=== PATIENT | male | born 1980 | race Two or more races ===

== ENCOUNTER 2021-08-28 12:19 | Inpatient (IN) | payer OTHER ==
[~2021-08-28] VITALS: Ht 175.3 cm; Wt 92.2 kg
[2021-08-28] MEDS ORDERED: SODIUM CHLORIDE 0.9% 1,000 ML IVB ONE (12:45)
[2021-08-28] MEDS ORDERED: ACETAMINOPHEN/CODEINE#3 (300/30mg) TAB PO ONE (12:45)
[2021-08-28 14:52] LABS: Urine Bacteria NONE SEEN /hpf (None Seen); Urine Blood 2+ /uL (Negative); Urine Mucus FEW (None Seen); Urine Specific Gravity 1.012 (1.001-1.035); Urine WBC 106 /hpf (0 - 3)
[2021-08-28] MEDS ORDERED: ONDANSETRON HCL 4 MG/2 ML VIAL IV PRN (15:15)
[2021-08-28] MEDS ORDERED: OXYBUTYNIN CHL 5 MG TAB PO PRN (15:15)
[2021-08-28] MEDS: amLODIPine BESYLATE 5 MG TAB PO SCH ×2 (15:42→18:58)
[2021-08-28] MEDS: ENOXAPARIN SOD 40 MG/0.4 ML SYRINGE SC SCH ×2 (15:45→18:59)
[2021-08-28 17:47] LABS: Basophils # (auto) 0 10 ^3/uL (0-0.2); Basophils % (auto) 0.5 % (0.0-2.0); Eosinophils # (auto) 0.1 10 ^3/uL (0-0.8); Eosinophils % (auto) 1.3 % (0.0-7.0); Hematocrit 39.3 % (41.0-53.0); Hemoglobin 13.6 g/dL (13.5-17.5); Lymphocytes # (auto) 1.3 10 ^3/uL (0.4-5.4); Lymphocytes % (auto) 24.8 % (10.0-50.0); Mean Corpuscular Hemoglobin 30.2 pg (28.0-32.0); Mean Corpuscular Hgb Conc. 34.6 g/dL (32.0-36.0); Mean Corpuscular Volume 87.4 fL (80.0-100.0); Monocytes # (auto) 0.3 10 ^3/uL (0-1.3); Monocytes % (auto) 6.1 % (0.0-12.0); Neutrophils # (auto) 3.6 10 ^3/uL (1.6-8.6); Neutrophils % (auto) 67.3 % (37.0-80.0); Nucleated Red Blood Cells % 0.1 %; Red Cell Distribution Width 12.5 % (11.8-14.3); White Blood Cell 5.4 10^3/uL (4.4-10.8)
[2021-08-28] MEDS ORDERED: MORPHINE SULFATE INJECTION 2 MG/ML SYRG IV ONE (18:00)
[2021-08-28 18:04] LABS: Albumin 3.8 g/dL (3.4-5.0); Calcium 8.3 mg/dL (8.5-10.1); Potassium 4.2 mmol/L (3.5-5.1)
[2021-08-28 18:07] LABS: INR 1.04 (0.9-1.15); Partial Thromboplastin Time 25.4 sec (23.6-33.0)
[2021-08-28 18:08] LABS: BUN/Creatinine Ratio 13.9; Bilirubin, Total 0.3 mg/dL (0.2-1.0); Total Protein 7.8 g/dL (6.4-8.2)
[2021-08-28 19:05] VITALS: BP 132/73
[2021-08-28] MEDS ORDERED: AMLO-489 PO (19:09)
[2021-08-28] MEDS ORDERED: KETOROLAC TROMETH 30 MG/ML 1ML VIAL IV PRN (19:15)
[2021-08-28] MEDS ORDERED: MIRT-66 PO (19:21)
[2021-08-28] MEDS ORDERED: PRA1C PO (19:21)
[2021-08-28] MEDS ORDERED: LISI20TA28 PO (19:21)
[2021-08-28] MEDS ORDERED: GABA-339 PO (19:21)
[2021-08-28] MEDS ORDERED: FURO40TA4 PO (19:21)
[2021-08-28] MEDS ORDERED: LACT10SO3 PO (19:21)
[2021-08-28] MEDS ORDERED: ACET-1156 PO (19:21)
[2021-08-28] MEDS ORDERED: KETO2CRE4 EX (19:21)
[2021-08-28] MEDS ORDERED: OXYB5TAB24 PO (19:21)
[2021-08-28] MEDS ORDERED: TAMS0.4C36 PO (19:21)
[2021-08-28 20:00] VITALS: BP 126/75
[2021-08-28] MEDS: PHENAZOPYRIDINE HCL 100 MG TAB PO SCH (20:47)
[2021-08-28] MEDS: PIPERACILLIN-TAZOB 3.375GM 100 ML IV SCH (21:45)
[2021-08-28] MEDS: GABAPENTIN 300 MG CAP PO SCH (21:46)
[2021-08-28] MEDS: PRAZOSIN HCL 1 MG CAP PO SCH (21:46)
[2021-08-28] MEDS: HYDROmorphone HCL 2 MG/ML VL IV PRN (21:58)
[2021-08-28 22:24] VITALS: BP 126/75
[2021-08-28 23:38] LABS: Urine Bacteria FEW /hpf (None Seen); Urine Blood TRACE /uL (Negative); Urine Budding Yeast OCCASIONAL /hpf (None Seen); Urine Specific Gravity 1.009 (1.001-1.035); Urine WBC 32 /hpf (0 - 3)
[2021-08-29] MEDS: HYDROmorphone HCL 2 MG/ML VL IV PRN ×6 (02:49→22:56)
[2021-08-29 05:01] VITALS: BP 112/65
[2021-08-29] MEDS: PIPERACILLIN-TAZOB 3.375GM 100 ML IV SCH ×3 (06:00→22:28)
[2021-08-29] MEDS: PHENAZOPYRIDINE HCL 100 MG TAB PO SCH ×3 (08:00→18:00)
[2021-08-29 09:00] VITALS: BP 102/71
[2021-08-29] MEDS: ENOXAPARIN SOD 40 MG/0.4 ML SYRINGE SC SCH (10:00)
[2021-08-29] MEDS: LISINOPRIL 20 MG TAB PO SCH (10:00)
[2021-08-29] MEDS: GABAPENTIN 300 MG CAP PO SCH ×2 (10:00→22:29)
[2021-08-29] MEDS: amLODIPine BESYLATE 5 MG TAB PO SCH (10:00)
[2021-08-29 12:44] VITALS: BP 115/75
[2021-08-29] MEDS: HYDROcodone-ACET 10/325MG TAB PO PRN ×2 (15:45→21:14)
[2021-08-29 16:44] VITALS: BP 121/83
[2021-08-29] MEDS: TAMSULOSIN HYDROCHLORIDE 0.4 MG CAP PO SCH (18:00)
[2021-08-29 22:00] VITALS: BP 114/74
[2021-08-29] MEDS: PRAZOSIN HCL 1 MG CAP PO SCH ×2 (22:00→22:28)
[2021-08-30 05:00] VITALS: BP 109/61
[2021-08-30] MEDS: PIPERACILLIN-TAZOB 3.375GM 100 ML IV SCH ×3 (05:18→21:29)
[2021-08-30] MEDS: GABAPENTIN 300 MG CAP PO SCH ×3 (05:19→21:30)
[2021-08-30] MEDS: PHENAZOPYRIDINE HCL 100 MG TAB PO SCH (07:59)
[2021-08-30] MEDS: HYDROmorphone HCL 2 MG/ML VL IV PRN ×4 (07:59→21:40)
[2021-08-30 08:59] VITALS: BP 150/86
[2021-08-30 09:44] LABS: Albumin 3.4 g/dL (3.4-5.0); Calcium 8.1 mg/dL (8.5-10.1); Potassium 4.3 mmol/L (3.5-5.1)
[2021-08-30 09:48] LABS: BUN/Creatinine Ratio 12.2; Bilirubin, Total 0.3 mg/dL (0.2-1.0); Total Protein 7.1 g/dL (6.4-8.2)
[2021-08-30] MEDS: LISINOPRIL 20 MG TAB PO SCH (10:00)
[2021-08-30] MEDS: ENOXAPARIN SOD 40 MG/0.4 ML SYRINGE SC SCH (10:00)
[2021-08-30] MEDS: amLODIPine BESYLATE 5 MG TAB PO SCH (11:45)
[2021-08-30 13:00] VITALS: BP 137/80
[2021-08-30] MEDS ORDERED: FUROSEMIDE 40 MG/4 ML VIAL ONE (13:02)
[2021-08-30] MEDS ORDERED: GADOTERATE MEG 10 MMOL/20ml INJ (0.5MMOL/ml) IV ONE (13:14)
[2021-08-30 16:53] VITALS: BP 129/81
[2021-08-30] MEDS: TAMSULOSIN HYDROCHLORIDE 0.4 MG CAP PO SCH (18:00)
[2021-08-30] MEDS: MIRTAZAPINE 30 MG TAB PO SCH (21:30)
[2021-08-30] MEDS: PRAZOSIN HCL 1 MG CAP PO SCH (21:45)
[2021-08-30 22:00] VITALS: BP 104/74
[2021-08-31 05:16] VITALS: BP 95/60
[2021-08-31] MEDS: PIPERACILLIN-TAZOB 3.375GM 100 ML IV SCH ×3 (05:32→21:30)
[2021-08-31] MEDS: HYDROmorphone HCL 2 MG/ML VL IV PRN ×2 (06:23→12:15)
[2021-08-31] MEDS: HYDROcodone-ACET 10/325MG TAB PO PRN ×3 (07:45→21:29)
[2021-08-31 09:06] VITALS: BP 101/69
[2021-08-31] MEDS: ENOXAPARIN SOD 40 MG/0.4 ML SYRINGE SC SCH (10:00)
[2021-08-31] MEDS: GABAPENTIN 300 MG CAP PO SCH ×2 (10:00→21:31)
[2021-08-31] MEDS: amLODIPine BESYLATE 5 MG TAB PO SCH (10:00)
[2021-08-31] MEDS: LISINOPRIL 20 MG TAB PO SCH (10:00)
[2021-08-31 14:14] VITALS: BP 127/75
[2021-08-31 16:40] VITALS: BP 108/60
[2021-08-31] MEDS: TAMSULOSIN HYDROCHLORIDE 0.4 MG CAP PO SCH (18:00)
[2021-08-31] MEDS: MIRTAZAPINE 30 MG TAB PO SCH (21:26)
[2021-08-31 22:00] VITALS: BP 117/74
[2021-09-01 05:00] VITALS: BP 114/63
[2021-09-01] MEDS: HYDROcodone-ACET 10/325MG TAB PO PRN ×3 (05:45→16:43)
[2021-09-01] MEDS: PIPERACILLIN-TAZOB 3.375GM 100 ML IV SCH ×2 (06:00→14:00)
[2021-09-01 09:00] VITALS: BP 118/74
[2021-09-01] MEDS: amLODIPine BESYLATE 5 MG TAB PO SCH (10:00)
[2021-09-01] MEDS: GABAPENTIN 300 MG CAP PO SCH (10:00)
[2021-09-01] MEDS: ENOXAPARIN SOD 40 MG/0.4 ML SYRINGE SC SCH (10:00)
[2021-09-01] MEDS: LISINOPRIL 20 MG TAB PO SCH (10:00)
[2021-09-01 13:00] VITALS: BP 117/71
[2021-09-01] MEDS ORDERED: CIPR500T4 PO ×2 (13:31→13:42)
== END 2021-09-01 16:21 | DRG 699 ==
LOC: ER 12:19 → EEVIPCON 12:19 → TELE 15:01 → WEST WING 18:15
PROVIDERS: ADMIT Internal Medicine; ATTEND Internal Medicine
PROC: 05HF33Z Insertion of Infusion Device into Left Cephalic Vein, Percutaneous Approach (ICD-10-PCS; principal; 2021-08-28)
PROC: B54NZZA Ultrasonography of Left Upper Extremity Veins, Guidance (ICD-10-PCS; 2021-08-28)
DX: T83.192A Other mechanical complication of indwelling ureteral stent, initial encounter (principal); N13.6 Pyonephrosis; B96.5 Pseudomonas (aeruginosa) (mallei) (pseudomallei) as the cause of diseases classified elsewhere; N28.89 Other specified disorders of kidney and ureter; N26.1 Atrophy of kidney (terminal); Z53.9 Procedure and treatment not carried out, unspecified reason; R53.81 Other malaise; Y83.8 Other surgical procedures as the cause of abnormal reaction of the patient, or of later complication, without mention of misadventure at the time of the procedure; Z20.822 Contact with and (suspected) exposure to COVID-19; Z87.440 Personal history of urinary (tract) infections; Z82.49 Family history of ischemic heart disease and other diseases of the circulatory system; Y92.89 Other specified places as the place of occurrence of the external cause; N18.31 Chronic kidney disease, stage 3a
CPT/HCPCS: 36415; 74176; 74183; 76775; 78707; 80053; 81001; 83605; 83690; 85025; 85610; 85730; 87040; 87086; 87088; 87186; 96361; 96374; G0378; J2543

== ENCOUNTER 2021-12-24 11:54 | Emergency (ER) | payer OTHER ==
[~2021-12-24 11:54] MED LIST: ACET-1156 PO; AMLO-489 PO; CIPR500T4 PO; FURO40TA4 PO; GABA-339 PO; KETO2CRE4 EX; LACT10SO3 PO; LISI20TA28 PO; MIRT-66 PO; OXYB5TAB24 PO; PRA1C PO; TAMS0.4C36 PO
== END 2021-12-24 14:26 | disposition left against medical advice (07) ==
LOC: ER 11:54 → EEVIPCON 11:54 → ER 14:26
DX: R10.9 Unspecified abdominal pain (principal); I10 Essential (primary) hypertension; Z87.442 Personal history of urinary calculi

== ENCOUNTER 2022-01-03 18:29 | Inpatient (IN) | payer OTHER ==
[~2022-01-03] VITALS: Ht 175.3 cm; Wt 86.1 kg
[2022-01-04 01:05] LABS: Basophils # (auto) 0 10 ^3/uL (0-0.2); Basophils % (auto) 0.6 % (0.0-2.0); Eosinophils # (auto) 0.3 10 ^3/uL (0-0.8); Eosinophils % (auto) 5.3 % (0.0-7.0); Hematocrit 35.4 % (41.0-53.0); Lymphocytes # (auto) 1.4 10 ^3/uL (0.4-5.4); Lymphocytes % (auto) 27.3 % (10.0-50.0); Mean Corpuscular Hemoglobin 28.8 pg (28.0-32.0); Mean Corpuscular Hgb Conc. 33.9 g/dL (32.0-36.0); Mean Corpuscular Volume 84.9 fL (80.0-100.0); Monocytes # (auto) 0.5 10 ^3/uL (0-1.3); Monocytes % (auto) 9.9 % (0.0-12.0); Neutrophils # (auto) 2.9 10 ^3/uL (1.6-8.6); Neutrophils % (auto) 56.9 % (37.0-80.0); Nucleated Red Blood Cells % 0.1 %; Red Blood Cells 4.17 10^6/uL (4.5-5.90); Red Cell Distribution Width 13.9 % (11.8-14.3); White Blood Cell 5.1 10^3/uL (4.4-10.8)
[2022-01-04 01:25] LABS: Albumin 3.5 g/dL (3.4-5.0); Calcium 8.4 mg/dL (8.5-10.1)
[2022-01-04 01:28] LABS: Bilirubin, Total 0.2 mg/dL (0.2-1.0); Total Protein 7.2 g/dL (6.4-8.2)
[2022-01-04 01:41] LABS: Urine Bacteria NONE SEEN /hpf (None Seen); Urine Blood 3+ /uL (Negative); Urine Mucus FEW (None Seen); Urine Specific Gravity 1.023 (1.001-1.035); Urine WBC 505 /hpf (0 - 3)
[2022-01-04 01:43] LABS: CRP High Sensitivity 1.21 mg/dL (< 0.3)
[2022-01-04] MEDS ORDERED: SODIUM CHLORIDE 0.9% 1,000 ML IV ONE (03:30)
[2022-01-04] MEDS ORDERED: cefTRIAXone 1GM/50ML D5W 50 ML IV ONE (03:30)
[2022-01-04] MEDS ORDERED: PIPERACILLIN-TAZOB 3.375GM 100 ML IV ONE (06:00)
[2022-01-04] MEDS ORDERED: D5W/SOD CHL 0.45% 1,000 ML IV ONE (06:00)
[2022-01-04] MEDS ORDERED: ONDANSETRON HCL 4 MG/2 ML VIAL IV PRN (06:00)
[2022-01-04] MEDS: HYDROcodone-ACET 10/325MG TAB PO PRN ×4 (08:00→23:00)
[2022-01-04] MEDS ORDERED: amLODIPine BESYLATE 5 MG TAB PO ONE (10:00)
[2022-01-04] MEDS ORDERED: LISINOPRIL 10 MG TAB PO ONE (10:00)
[2022-01-04 13:30] VITALS: BP 133/82
[2022-01-04] MEDS ORDERED: GABAPENTIN 300 MG CAP PO SCH ×2 (14:42→22:00)
[2022-01-04] MEDS ORDERED: VANCOMYCIN PER PHARMACY 0 MG IV SCH (16:00)
[2022-01-04] MEDS: VANCOMYCIN 1GM/250ML 250 ML IV SCH (17:59)
[2022-01-04] MEDS: TAMSULOSIN HYDROCHLORIDE 0.4 MG CAP PO SCH (18:00)
[2022-01-04 22:00] VITALS: BP 107/67
[2022-01-04] MEDS: MIRTAZAPINE 30 MG TAB PO SCH (22:32)
[2022-01-05 05:00] VITALS: BP 104/61
[2022-01-05] MEDS: VANCOMYCIN 1GM/250ML 250 ML IV SCH ×2 (06:04→18:32)
[2022-01-05] MEDS: HYDROcodone-ACET 10/325MG TAB PO PRN ×4 (06:04→20:22)
[2022-01-05 08:39] VITALS: BP 122/75
[2022-01-05] MEDS: ENOXAPARIN SOD 40 MG/0.4 ML SYRINGE SC SCH (10:00)
[2022-01-05 12:50] VITALS: BP 115/51
[2022-01-05] MEDS: PANTOPRAZOLE 40 MG TAB PO SCH (13:33)
[2022-01-05] MEDS: LISINOPRIL 20 MG TAB PO SCH (13:34)
[2022-01-05] MEDS: GABAPENTIN 300 MG CAP PO SCH ×3 (15:17→21:36)
[2022-01-05 17:00] VITALS: BP 120/64
[2022-01-05] MEDS: TAMSULOSIN HYDROCHLORIDE 0.4 MG CAP PO SCH (18:31)
[2022-01-05] MEDS: KETOROLAC TROMETH 30 MG/ML 1ML VIAL IV PRN (18:31)
[2022-01-05] MEDS: MIRTAZAPINE 30 MG TAB PO SCH (21:36)
[2022-01-05 22:00] VITALS: BP 110/54
[2022-01-06] MEDS: KETOROLAC TROMETH 30 MG/ML 1ML VIAL IV PRN (00:08)
[2022-01-06] MEDS: HYDROcodone-ACET 10/325MG TAB PO PRN ×2 (00:25→04:28)
[2022-01-06 05:00] VITALS: BP 118/61
[2022-01-06] MEDS: GABAPENTIN 300 MG CAP PO SCH ×4 (05:30→22:11)
[2022-01-06] MEDS: VANCOMYCIN 1GM/250ML 250 ML IV SCH ×2 (05:33→18:00)
[2022-01-06 06:40] LABS: Potassium 4.4 mmol/L (3.5-5.1)
[2022-01-06 07:00] LABS: BUN/Creatinine Ratio 19.7
[2022-01-06 09:00] VITALS: BP 118/70
[2022-01-06] MEDS: ENOXAPARIN SOD 40 MG/0.4 ML SYRINGE SC SCH (10:00)
[2022-01-06] MEDS: PANTOPRAZOLE 40 MG TAB PO SCH (10:56)
[2022-01-06] MEDS: LISINOPRIL 20 MG TAB PO SCH (10:57)
[2022-01-06] MEDS ORDERED: MORPHINE SULF 30 mg ER tab PO ONE (11:00)
[2022-01-06] MEDS ORDERED: MORPHINE SULF 30 mg ER tab PO SCH (12:00)
[2022-01-06 13:00] VITALS: BP 119/67
[2022-01-06] MEDS: MORPHINE SULF 30 mg ER tab PO SCH ×2 (15:47→22:11)
[2022-01-06 17:00] VITALS: BP 121/61
[2022-01-06] MEDS: TAMSULOSIN HYDROCHLORIDE 0.4 MG CAP PO SCH (18:27)
[2022-01-06 21:54] VITALS: BP 101/62
[2022-01-06] MEDS: MIRTAZAPINE 30 MG TAB PO SCH (22:12)
[2022-01-07 05:00] VITALS: BP 90/49
[2022-01-07] MEDS: VANCOMYCIN 1GM/250ML 250 ML IV SCH (06:00)
[2022-01-07] MEDS: MORPHINE SULF 30 mg ER tab PO SCH ×3 (06:33→22:42)
[2022-01-07] MEDS: GABAPENTIN 300 MG CAP PO SCH ×4 (06:33→22:42)
[2022-01-07 09:00] VITALS: BP 105/48
[2022-01-07] MEDS: ENOXAPARIN SOD 40 MG/0.4 ML SYRINGE SC SCH (10:00)
[2022-01-07] MEDS: PANTOPRAZOLE 40 MG TAB PO SCH (10:47)
[2022-01-07] MEDS: LISINOPRIL 20 MG TAB PO SCH (10:48)
[2022-01-07 13:00] VITALS: BP 132/81
[2022-01-07] MEDS ORDERED: MORPHINE SULFATE INJ 2 MG/ml SYRG IM ONE (15:00)
[2022-01-07] MEDS: CEFEPIME 2 GM in SODIUM CHL 0.9% 50 ML IV SCH ×2 (15:12→22:42)
[2022-01-07] MEDS ORDERED: IOHEXOL 300 MG/ML 100ML BOTTLE IJ ONE (15:32)
[2022-01-07] MEDS ORDERED: SUCCINYLCHOLINE CHLORIDE 20 MG/ML 10ML VIAL IV ONE (16:03)
[2022-01-07] MEDS ORDERED: MIDAZOLAM HCL 2MG/2ML 2ml VIAL (1mg/ml) ONE (16:07)
[2022-01-07] MEDS ORDERED: fentaNYL CITRATE 100 MCG/2 ML VL ONE (16:07)
[2022-01-07] MEDS ORDERED: PROPOFOL 10 MG/ML 20 ML IV ONE (16:07)
[2022-01-07] MEDS ORDERED: ONDANSETRON HCL 4 MG/2 ML VIAL ONE (16:07)
[2022-01-07] MEDS ORDERED: SODIUM CHLORIDE LOCK 10 ML ONE (16:07)
[2022-01-07] MEDS ORDERED: HYDROmorphone HCL 2 MG/ML VL/or syr IV PRN (16:30)
[2022-01-07] MEDS ORDERED: METOCLOPRAMIDE HCL 5MG/ml INJ 2ml VIAL IV PRN (16:30)
[2022-01-07] MEDS ORDERED: fentaNYL CITRATE 100 MCG/2 ML VL IV PRN (16:30)
[2022-01-07] MEDS ORDERED: MORPHINE SULFATE 4 MG/ML SYR/VIAL IV PRN (16:30)
[2022-01-07] MEDS ORDERED: ACCU-CHEK COMFORT CURVE STRIP VI ONE (16:30)
[2022-01-07 17:00] VITALS: BP 112/67
[2022-01-07] MEDS: TAMSULOSIN HYDROCHLORIDE 0.4 MG CAP PO SCH (18:00)
[2022-01-07] MEDS ORDERED: DexAMETHasone SOD PHOS 10MG/1ML VIAL INJ ONE (19:58)
[2022-01-07] MEDS ORDERED: ROCURONIUM 10MG/ML 10ML VIAL IV ONE (20:09)
[2022-01-07] MEDS ORDERED: NEOSTIGMINE 1 MG/ML INJ (10mg/10ML VIAL) ONE (20:11)
[2022-01-07] MEDS ORDERED: GLYCOPYRROLATE 0.2 MG/ML 1ML VIAL ONE (20:11)
[2022-01-07] MEDS ORDERED: FUROSEMIDE 20 MG/2 ML VIAL ONE (20:59)
[2022-01-07] MEDS ORDERED: HYDROmorphone HCL 2 MG/ML VL/or syr ONE (21:34)
[2022-01-07] MEDS: HYDROmorphone HCL 2 MG/ML VL/or syr IV PRN ×2 (21:35→21:55)
[2022-01-07] MEDS: MIRTAZAPINE 30 MG TAB PO SCH (22:43)
[2022-01-08 04:50] VITALS: BP 127/69
[2022-01-08] MEDS: MORPHINE SULF 30 mg ER tab PO SCH ×3 (06:01→22:07)
[2022-01-08] MEDS: GABAPENTIN 300 MG CAP PO SCH ×4 (06:01→22:07)
[2022-01-08] MEDS: CEFEPIME 2 GM in SODIUM CHL 0.9% 50 ML IV SCH ×2 (06:01→14:00)
[2022-01-08 09:00] VITALS: BP 120/71
[2022-01-08] MEDS: PANTOPRAZOLE 40 MG TAB PO SCH (09:20)
[2022-01-08] MEDS: LISINOPRIL 20 MG TAB PO SCH (09:20)
[2022-01-08] MEDS: ENOXAPARIN SOD 40 MG/0.4 ML SYRINGE SC SCH (09:21)
[2022-01-08 09:25] LABS: Basophils # (auto) 0 10 ^3/uL (0-0.2); Basophils % (auto) 0.3 % (0.0-2.0); Eosinophils # (auto) 0 10 ^3/uL (0-0.8); Eosinophils % (auto) 0.1 % (0.0-7.0); Hematocrit 39.3 % (41.0-53.0); Hemoglobin 13.1 g/dL (13.5-17.5); Lymphocytes # (auto) 0.3 10 ^3/uL (0.4-5.4); Lymphocytes % (auto) 6.6 % (10.0-50.0); Mean Corpuscular Hemoglobin 28.4 pg (28.0-32.0); Mean Corpuscular Hgb Conc. 33.4 g/dL (32.0-36.0); Mean Corpuscular Volume 85.1 fL (80.0-100.0); Monocytes # (auto) 0.1 10 ^3/uL (0-1.3); Monocytes % (auto) 2.5 % (0.0-12.0); Neutrophils # (auto) 4.7 10 ^3/uL (1.6-8.6); Neutrophils % (auto) 90.5 % (37.0-80.0); Nucleated Red Blood Cells % 0.1 %; Red Blood Cells 4.61 10^6/uL (4.5-5.90); Red Cell Distribution Width 13.9 % (11.8-14.3); White Blood Cell 5.2 10^3/uL (4.4-10.8)
[2022-01-08 09:45] LABS: Potassium 4.7 mmol/L (3.5-5.1)
[2022-01-08 09:51] LABS: BUN/Creatinine Ratio 15.8; Calcium 8.9 mg/dL (8.5-10.1)
[2022-01-08] MEDS: KETOROLAC TROMETH 30 MG/ML 1ML VIAL IV PRN (16:34)
[2022-01-08 17:00] VITALS: BP 99/51
[2022-01-08] MEDS: TAMSULOSIN HYDROCHLORIDE 0.4 MG CAP PO SCH (17:49)
[2022-01-08 22:00] VITALS: BP 100/48
[2022-01-08] MEDS: MIRTAZAPINE 30 MG TAB PO SCH (22:07)
[2022-01-09] MEDS: CEFEPIME 2 GM in SODIUM CHL 0.9% 50 ML IV SCH ×2 (04:54→16:29)
[2022-01-09 05:00] VITALS: BP 117/61
[2022-01-09] MEDS: GABAPENTIN 300 MG CAP PO SCH ×4 (05:47→21:55)
[2022-01-09] MEDS: MORPHINE SULF 30 mg ER tab PO SCH ×3 (05:47→21:54)
[2022-01-09] MEDS: KETOROLAC TROMETH 30 MG/ML 1ML VIAL IV PRN ×2 (06:50→14:40)
[2022-01-09 09:00] VITALS: BP 109/53
[2022-01-09] MEDS: ENOXAPARIN SOD 40 MG/0.4 ML SYRINGE SC SCH (09:45)
[2022-01-09] MEDS: LISINOPRIL 20 MG TAB PO SCH (09:48)
[2022-01-09] MEDS: PANTOPRAZOLE 40 MG TAB PO SCH (09:48)
[2022-01-09 13:00] VITALS: BP 102/54
[2022-01-09 17:00] VITALS: BP 6/51
[2022-01-09] MEDS: TAMSULOSIN HYDROCHLORIDE 0.4 MG CAP PO SCH (17:47)
[2022-01-09] MEDS: MIRTAZAPINE 30 MG TAB PO SCH (21:54)
[2022-01-09 22:55] VITALS: BP 123/71
[2022-01-10] MEDS: CEFEPIME 2 GM in SODIUM CHL 0.9% 50 ML IV SCH ×3 (03:52→20:56)
[2022-01-10] MEDS: KETOROLAC TROMETH 30 MG/ML 1ML VIAL IV PRN ×2 (04:16→10:30)
[2022-01-10 05:12] VITALS: BP 128/63
[2022-01-10] MEDS: MORPHINE SULF 30 mg ER tab PO SCH ×3 (06:08→21:30)
[2022-01-10] MEDS: GABAPENTIN 300 MG CAP PO SCH ×4 (06:08→21:29)
[2022-01-10 08:00] VITALS: BP 109/53
[2022-01-10] MEDS: ENOXAPARIN SOD 40 MG/0.4 ML SYRINGE SC SCH (10:00)
[2022-01-10] MEDS: PANTOPRAZOLE 40 MG TAB PO SCH (10:20)
[2022-01-10] MEDS: LISINOPRIL 20 MG TAB PO SCH (10:20)
[2022-01-10 12:00] VITALS: BP 98/66
[2022-01-10] MEDS: HYDROmorphone HCL 2 MG TAB PO PRN ×2 (15:30→20:28)
[2022-01-10 16:00] VITALS: BP 137/82
[2022-01-10] MEDS: TAMSULOSIN HYDROCHLORIDE 0.4 MG CAP PO SCH (17:15)
[2022-01-10] MEDS ORDERED: NICOTINE 21MG/24 HR TOPICAL PATCH TD SCH (20:00)
[2022-01-10] MEDS: MIRTAZAPINE 30 MG TAB PO SCH (21:29)
[2022-01-10 22:23] VITALS: BP 127/79
[2022-01-11] MEDS: HYDROmorphone HCL 2 MG TAB PO PRN ×5 (00:57→20:28)
[2022-01-11] MEDS: CEFEPIME 2 GM in SODIUM CHL 0.9% 50 ML IV SCH ×2 (04:43→15:49)
[2022-01-11 05:08] VITALS: BP 109/58
[2022-01-11] MEDS: MORPHINE SULF 30 mg ER tab PO SCH ×3 (06:07→21:57)
[2022-01-11] MEDS: GABAPENTIN 300 MG CAP PO SCH ×4 (06:07→21:56)
[2022-01-11 08:00] VITALS: BP 116/70
[2022-01-11] MEDS: PANTOPRAZOLE 40 MG TAB PO SCH (09:38)
[2022-01-11] MEDS: LISINOPRIL 20 MG TAB PO SCH (09:39)
[2022-01-11] MEDS: ENOXAPARIN SOD 40 MG/0.4 ML SYRINGE SC SCH (09:40)
[2022-01-11 11:26] LABS: BUN/Creatinine Ratio 16.2; Calcium 8.2 mg/dL (8.5-10.1); Potassium 4.7 mmol/L (3.5-5.1)
[2022-01-11 12:00] VITALS: BP 100/61
[2022-01-11 16:00] VITALS: BP 105/60
[2022-01-11] MEDS: TAMSULOSIN HYDROCHLORIDE 0.4 MG CAP PO SCH (18:27)
[2022-01-11] MEDS: MIRTAZAPINE 30 MG TAB PO SCH (21:57)
[2022-01-11 22:00] VITALS: BP 100/58
[2022-01-12] MEDS: CEFEPIME 2 GM in D5W 5% 50 ML IV SCH ×2 (04:07→16:18)
[2022-01-12 05:00] VITALS: BP 106/59
[2022-01-12] MEDS: GABAPENTIN 300 MG CAP PO SCH ×4 (06:08→22:33)
[2022-01-12] MEDS: MORPHINE SULF 30 mg ER tab PO SCH ×3 (06:08→22:34)
[2022-01-12 09:00] VITALS: BP 111/67
[2022-01-12] MEDS: HYDROmorphone HCL 2 MG TAB PO PRN ×3 (09:00→20:58)
[2022-01-12] MEDS: PANTOPRAZOLE 40 MG TAB PO SCH (09:51)
[2022-01-12] MEDS: ENOXAPARIN SOD 40 MG/0.4 ML SYRINGE SC SCH (09:52)
[2022-01-12] MEDS: LISINOPRIL 20 MG TAB PO SCH (10:03)
[2022-01-12 13:00] VITALS: BP 100/61
[2022-01-12 17:00] VITALS: BP 93/73
[2022-01-12] MEDS: TAMSULOSIN HYDROCHLORIDE 0.4 MG CAP PO SCH (19:32)
[2022-01-12 20:00] VITALS: BP 104/60
[2022-01-12 22:00] VITALS: BP 104/68
[2022-01-12] MEDS: MIRTAZAPINE 30 MG TAB PO SCH (22:33)
[2022-01-13] MEDS: CEFEPIME 2 GM in D5W 5% 50 ML IV SCH ×2 (04:00→16:00)
[2022-01-13] MEDS: GABAPENTIN 300 MG CAP PO SCH ×4 (06:38→23:19)
[2022-01-13] MEDS: MORPHINE SULF 30 mg ER tab PO SCH ×3 (06:39→23:19)
[2022-01-13 09:00] VITALS: BP 95/68
[2022-01-13] MEDS: ENOXAPARIN SOD 40 MG/0.4 ML SYRINGE SC SCH (10:00)
[2022-01-13] MEDS: PANTOPRAZOLE 40 MG TAB PO SCH (11:32)
[2022-01-13] MEDS: LISINOPRIL 20 MG TAB PO SCH (11:33)
[2022-01-13] MEDS: HYDROmorphone HCL 2 MG TAB PO PRN ×2 (11:38→18:55)
[2022-01-13 13:00] VITALS: BP 108/65
[2022-01-13] MEDS: TAMSULOSIN HYDROCHLORIDE 0.4 MG CAP PO SCH (18:54)
[2022-01-13 22:00] VITALS: BP 93/48
[2022-01-13] MEDS: MIRTAZAPINE 30 MG TAB PO SCH (23:18)
[2022-01-14] MEDS: CEFEPIME 2 GM in D5W 5% 50 ML IV SCH ×2 (04:00→15:18)
[2022-01-14 05:00] VITALS: BP 93/46
[2022-01-14] MEDS: GABAPENTIN 300 MG CAP PO SCH ×4 (06:47→22:25)
[2022-01-14] MEDS: MORPHINE SULF 30 mg ER tab PO SCH ×3 (06:47→22:25)
[2022-01-14 09:00] VITALS: BP 91/47
[2022-01-14] MEDS: LISINOPRIL 20 MG TAB PO SCH (10:00)
[2022-01-14] MEDS: ENOXAPARIN SOD 40 MG/0.4 ML SYRINGE SC SCH (10:00)
[2022-01-14 11:08] LABS: Basophils # (auto) 0 10 ^3/uL (0-0.2); Basophils % (auto) 0.5 % (0.0-2.0); Eosinophils # (auto) 0.1 10 ^3/uL (0-0.8); Eosinophils % (auto) 3.1 % (0.0-7.0); Hematocrit 35.6 % (41.0-53.0); Hemoglobin 11.8 g/dL (13.5-17.5); Lymphocytes # (auto) 0.9 10 ^3/uL (0.4-5.4); Lymphocytes % (auto) 43.8 % (10.0-50.0); Mean Corpuscular Hemoglobin 28.1 pg (28.0-32.0); Mean Corpuscular Hgb Conc. 33.2 g/dL (32.0-36.0); Mean Corpuscular Volume 84.8 fL (80.0-100.0); Monocytes # (auto) 0.3 10 ^3/uL (0-1.3); Monocytes % (auto) 13.9 % (0.0-12.0); Neutrophils # (auto) 0.8 10 ^3/uL (1.6-8.6); Neutrophils % (auto) 38.7 % (37.0-80.0); Nucleated Red Blood Cells % 0.3 %; Red Cell Distribution Width 13.9 % (11.8-14.3); White Blood Cell 2.1 10^3/uL (4.4-10.8)
[2022-01-14] MEDS: HYDROmorphone HCL 2 MG TAB PO PRN ×2 (11:21→20:20)
[2022-01-14] MEDS: PANTOPRAZOLE 40 MG TAB PO SCH (11:21)
[2022-01-14 13:00] VITALS: BP 92/56
[2022-01-14] MEDS: TAMSULOSIN HYDROCHLORIDE 0.4 MG CAP PO SCH (18:00)
[2022-01-14 22:00] VITALS: BP 98/54
[2022-01-14] MEDS: MIRTAZAPINE 30 MG TAB PO SCH (22:25)
[2022-01-15] MEDS: CEFEPIME 2 GM in D5W 5% 50 ML IV SCH ×2 (04:34→14:56)
[2022-01-15 05:00] VITALS: BP 109/67
[2022-01-15] MEDS: GABAPENTIN 300 MG CAP PO SCH ×4 (06:15→21:34)
[2022-01-15] MEDS: MORPHINE SULF 30 mg ER tab PO SCH ×3 (06:16→21:34)
[2022-01-15 08:49] VITALS: BP 99/58
[2022-01-15] MEDS: ENOXAPARIN SOD 40 MG/0.4 ML SYRINGE SC SCH (10:00)
[2022-01-15] MEDS: LISINOPRIL 20 MG TAB PO SCH (10:00)
[2022-01-15] MEDS: PANTOPRAZOLE 40 MG TAB PO SCH (10:38)
[2022-01-15] MEDS: HYDROmorphone HCL 2 MG TAB PO PRN ×2 (10:39→17:23)
[2022-01-15 13:00] VITALS: BP 122/60
[2022-01-15 16:49] VITALS: BP 103/62
[2022-01-15] MEDS: TAMSULOSIN HYDROCHLORIDE 0.4 MG CAP PO SCH (17:18)
[2022-01-15] MEDS: MIRTAZAPINE 30 MG TAB PO SCH (21:35)
[2022-01-15 22:00] VITALS: BP 107/62
[2022-01-16] MEDS: CEFEPIME 2 GM in D5W 5% 50 ML IV SCH ×2 (03:42→15:51)
[2022-01-16 05:00] VITALS: BP 97/56
[2022-01-16] MEDS: GABAPENTIN 300 MG CAP PO SCH ×4 (05:25→21:36)
[2022-01-16] MEDS: MORPHINE SULF 30 mg ER tab PO SCH ×3 (05:26→21:36)
[2022-01-16] MEDS: PANTOPRAZOLE 40 MG TAB PO SCH (08:31)
[2022-01-16] MEDS: HYDROmorphone HCL 2 MG TAB PO PRN ×3 (08:32→17:47)
[2022-01-16 08:34] VITALS: BP 113/64
[2022-01-16] MEDS: LISINOPRIL 20 MG TAB PO SCH (09:19)
[2022-01-16] MEDS: ENOXAPARIN SOD 40 MG/0.4 ML SYRINGE SC SCH (09:19)
[2022-01-16 13:28] VITALS: BP 112/62
[2022-01-16 17:00] VITALS: BP 105/57
[2022-01-16] MEDS: TAMSULOSIN HYDROCHLORIDE 0.4 MG CAP PO SCH (17:47)
[2022-01-16] MEDS: MIRTAZAPINE 30 MG TAB PO SCH (21:36)
[2022-01-16 22:00] VITALS: BP 117/65
[2022-01-17] MEDS: CEFEPIME 2 GM in D5W 5% 50 ML IV SCH (03:46)
[2022-01-17 05:00] VITALS: BP 100/58
[2022-01-17] MEDS: GABAPENTIN 300 MG CAP PO SCH ×2 (06:08→11:22)
[2022-01-17] MEDS: MORPHINE SULF 30 mg ER tab PO SCH (06:09)
[2022-01-17] MEDS: PANTOPRAZOLE 40 MG TAB PO SCH (08:37)
[2022-01-17] MEDS: HYDROmorphone HCL 2 MG TAB PO PRN ×2 (08:38→12:42)
[2022-01-17 09:16] VITALS: BP 95/57
[2022-01-17] MEDS: LISINOPRIL 20 MG TAB PO SCH (09:24)
[2022-01-17] MEDS: ENOXAPARIN SOD 40 MG/0.4 ML SYRINGE SC SCH (09:25)
== END 2022-01-17 13:50 | DRG 690 ==
LOC: ER 18:29 → OVERFLOW 01-04 05:57 → EEVIPCON 01-04 05:57 → EAST 01-04 13:00
PROVIDERS: ADMIT Internal Medicine; ATTEND Internal Medicine
PROC: 0TF48ZZ Fragmentation in Left Kidney Pelvis, Via Natural or Artificial Opening Endoscopic (ICD-10-PCS; 2022-01-07)
PROC: 0TC48ZZ Extirpation of Matter from Left Kidney Pelvis, Via Natural or Artificial Opening Endoscopic (ICD-10-PCS; 2022-01-07)
PROC: 05HC33Z Insertion of Infusion Device into Left Basilic Vein, Percutaneous Approach (ICD-10-PCS; 2022-01-07)
PROC: B54NZZA Ultrasonography of Left Upper Extremity Veins, Guidance (ICD-10-PCS; 2022-01-07)
PROC: 0TP98DZ Removal of Intraluminal Device from Ureter, Via Natural or Artificial Opening Endoscopic (ICD-10-PCS; principal; 2022-01-07 20:11)
DX: N13.6 Pyonephrosis (principal); L03.116 Cellulitis of left lower limb; M79.89 Other specified soft tissue disorders; G62.9 Polyneuropathy, unspecified; N17.9 Acute kidney failure, unspecified; B96.5 Pseudomonas (aeruginosa) (mallei) (pseudomallei) as the cause of diseases classified elsewhere; G89.4 Chronic pain syndrome; F41.9 Anxiety disorder, unspecified; Z20.822 Contact with and (suspected) exposure to COVID-19; I10 Essential (primary) hypertension; Z82.49 Family history of ischemic heart disease and other diseases of the circulatory system; Z87.442 Personal history of urinary calculi; Z79.899 Other long term (current) drug therapy; Z87.440 Personal history of urinary (tract) infections
CPT/HCPCS: 36415; 71045; 74018; 74176; 76000; 80048; 80053; 80202; 81001; 82565; 83605; 85025; 86141; 86850; 86900; 86901; 87086; 87088; 87186; 96365; 96366; 96367; G0378; J0330; J0696; J1100; J1885; J2250; J2405; J2543; J2704; J7060

== ENCOUNTER → 2022-03-19 | Outpatient (CLI) | payer OTHER ==
[~2022-03-19] MED LIST changes: -ACET-1156 PO
[2022-03-19 08:02] LABS: Urine Bacteria FEW /hpf (None Seen); Urine Blood Negative /uL (Negative); Urine Specific Gravity 1.016 (1.001-1.035); Urine WBC 1 /hpf (0 - 3)
== END | disposition home or self-care (01) ==
LOC: LAB 07:41
PROVIDERS: ATTEND Urology
DX: N39.0 Urinary tract infection, site not specified (principal)
CPT/HCPCS: 81001; 87086

== ENCOUNTER → 2022-07-10 | Outpatient (CLI) | payer OTHER ==
[2022-07-10 10:40] LABS: Calcium 8.7 mg/dL (8.5-10.1); Potassium 4.4 mmol/L (3.5-5.1)
[2022-07-10 10:42] LABS: BUN/Creatinine Ratio 15.9
== END | disposition home or self-care (01) ==
LOC: CT 09:33
PROVIDERS: ATTEND Surgery
DX: N20.0 Calculus of kidney (principal); N39.0 Urinary tract infection, site not specified; Z79.899 Other long term (current) drug therapy
CPT/HCPCS: 36415; 80048